=== PATIENT | male | born 1980 | race Caucasian/White ===

== ENCOUNTER 2019-07-18 07:31 | Emergency (ER) | payer SELFPAY ==
--- NOTE | 2019-07-18 08:08 | EDM.PDOC ---
ED HPI GENERAL MEDICAL PROBLEM - General Chief Complaint: Laceration Stated Complaint: CUT LEFT ARM Time Seen by Provider: 07/18/19 07:45 Source of Information: Reports: Patient, RN History Limitations: Reports: No Limitations - History of Present Illness INITIAL COMMENTS - FREE TEXT/NARRATIVE: 39 yo male here after incurring a grinding injury to his forearm just before arrival while at work. Is not certain about the timing of his last tetanus. No other injuries. 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) Left Arm Pain Score (Numeric/FACES): 3 - Related Data Allergies Allergy/AdvReac Type Severity Reaction Status Date / Time Penicillins AdvReac Other Verified 07/18/19 07:43 Home Meds: Home Meds Lisinopril 20 mg PO DAILY 07/18/19 [History] Past Medical History HEENT History: Reports: Impaired Vision Cardiovascular History: Reports: Hypertension - Past Surgical History Head Surgeries/Procedures: Reports: None Cardiovascular Surgical History: Reports: None Social & Family History - Tobacco Use Smoking Status *Q: Former Smoker Used Tobacco, but Quit: Yes Month/Year Tobacco Last Used: 2004 - Caffeine Use Caffeine Use: Reports: Coffee - Recreational Drug Use Recreational Drug Use: No ED ROS GENERAL - Review of Systems Review Of Systems: See Below Constitutional: Reports: No Symptoms Musculoskeletal: Reports: No Symptoms Skin: Reports: Wound (L forearm, grinding wheel injury) Neurological: Reports: No Symptoms Psychiatric: Reports: No Symptoms ED EXAM, SKIN/RASH Exam: See Below Exam Limited By: No Limitations General Appearance: Alert, WD/WN, No Apparent Distress Extremities: Other (wound L forearm) Neurological: Alert, Oriented, CN II-XII Intact, Normal Cognition, No Motor/ Sensory Deficits Psychiatric: Normal Affect, Normal Mood Skin: Warm, Dry, Normal Color, No Rash, Wound/Incision (L forearm, no active bleeding, CMS intact distally.) Location, Skin: Upper Extremity, Left Characteristics: Linear Associated features: Tenderness. No: Warmth, Lymphangitis, Inflammation ED SKIN PROCEDURES - Laceration/Wound Repair Left Middle Anterior Lateral Arm Appearance: Subcutaneous, Mildly Contaminated Distal NVT: Neuro & Vascular Intact, No Tendon Injury Anesthetic Type: Local Local Anesthesia - Lidocaine (Xylocaine): 1% Plain Local Anesthetic Volume: 5cc Skin Prep: Saline Saline Irrigation (cc's): 45 Closed with: Sutures Lac/Wound length In cm: 2.5 Suture Size: 5-0 # of Sutures: 3 Suture Type: Nylon, Interrupted, Mattress Drain Placement: No Sterile Dressing Applied: Nurse Tetanus Status Addressed: Yes Complications: No Course - Vital Signs Last Recorded V/S: Last Vital Signs Temp 35.7 C 07/18/19 07:51 Pulse 69 07/18/19 07:51 Resp 16 07/18/19 07:51 BP 141/84 H 07/18/19 07:51 Pulse Ox 97 07/18/19 07:51 - Orders/Labs/Meds Meds: Medications Discontinued Medications Generic Name Dose Route Start Last Admin Trade Name Zainab PRN Reason Stop Dose Admin Lidocaine HCl 5 ml 07/18/19 07:55 Xylocaine-Mpf 1% INJECT 07/18/19 07:56 ONETIME ONE Departure - Departure Time of Disposition: 08:20 Disposition: Home, Self-Care 01 Condition: Good Clinical Impression: Laceration of forearm, left Qualifiers: Encounter type: initial encounter Qualified Code(s): S51.812A - Laceration without foreign body of left forearm, initial encounter - Discharge Information *PRESCRIPTION DRUG MONITORING PROGRAM REVIEWED*: No *COPY OF PRESCRIPTION DRUG MONITORING REPORT IN PATIENT ARMOND: No Instructions: Laceration Care, Adult, [id number] Referrals: PCP,None [Primary Care Provider] - Additional Instructions: Clean wound twice daily with soap and water. Dry. Apply antibiotic ointment and a new dressing. Recheck for signs of infection. Stitches out in 9-10 days in the clinic. Use acetaminophen as needed for pain relief.
[2019-07-18] MEDS ORDERED: Bacitracin Oint 1 GM U/D Packet TOP ONE (08:10)
== END 2019-07-18 08:20 | disposition home or self-care (01) ==
LOC: JP.ED 07:31
DX: S51.812A Laceration without foreign body of left forearm, initial encounter (principal); I10 Essential (primary) hypertension; Z88.0 Allergy status to penicillin; Z79.899 Other long term (current) drug therapy; Z87.891 Personal history of nicotine dependence; W26.9XXA Contact with unspecified sharp object(s), initial encounter; Y99.0 Civilian activity done for income or pay
CPT/HCPCS: 12001; 99282; J2001

== ENCOUNTER 2021-04-09 06:57 | Day surgery (SDC) | payer MEDICAID ==
[~2021-04-09 06:57] MED LIST: Bupivacaine 0.5% 50 ML MDV ONE; Lidocaine 1% with EPINEPHrine 1:100,000 50 ML MDV ONE; Sodium Chloride 0.9% 1,000 ML IV SCH; metroNIDAZOLE/Normal Saline 500 MG in Premix Bag 1 BAG IV ONE
[2021-04-09] MEDS ORDERED: fentaNYL 250 MCG/5 ML SDV ONE ×2 (07:23→08:29)
[2021-04-09] MEDS ORDERED: Neostigmine Methylsulfate 1 MG/ML 5 ML Syringe ONE (07:24)
[2021-04-09] MEDS ORDERED: Propofol 200 MG/20 ML SDV ONE (07:24)
[2021-04-09] MEDS ORDERED: Ondansetron 4 MG/2 ML SDV ONE (07:24)
[2021-04-09] MEDS ORDERED: Succinylcholine 200 MG/10 ML MDV ONE (07:24)
[2021-04-09] MEDS ORDERED: Rocuronium 50 MG/5 ML Vial ONE (07:24)
[2021-04-09] MEDS ORDERED: Glycopyrrolate 0.2 MG/ML 5 ML MDV ONE (07:24)
[2021-04-09] MEDS ORDERED: Dexamethasone 4 MG/ML SDV ONE (07:24)
[2021-04-09] MEDS ORDERED: Sodium Chloride 0.9% 1,000 ML IV SCH (07:30)
[2021-04-09] MEDS ORDERED: metroNIDAZOLE/Normal Saline 500 MG in Premix Bag 1 BAG IV ONE (08:15)
[2021-04-09] MEDS ORDERED: Lactated Ringers 1,000 ML ONE (08:44)
[2021-04-09] MEDS ORDERED: Benzocaine/Cetylpyridinium/Menthol Lozenge MUCMEM PRN (09:07)
[2021-04-09] MEDS ORDERED: Docusate Sodium 100 MG Cap PO PRN (09:07)
[2021-04-09] MEDS ORDERED: Acetaminophen/HYDROcodone 325-5 MG Tab PO PRN (09:07)
[2021-04-09] MEDS ORDERED: Zolpidem 5 MG Tab PO PRN (09:07)
[2021-04-09] MEDS ORDERED: hydrOXYzine HCL 100 MG/2 ML SDV IM PRN (09:07)
--- NOTE | 2021-04-09 15:11 | OR ---
DATE OF PROCEDURE: 04/09/2021 SURGEON: Tee Koenig MD PROCEDURES: 1. Transversus abdominis plane block bilaterally. 2. Rectus sheath blocks bilaterally. COMPLICATIONS: None. SOCIAL INSURANCE SPECIALIST: None. RISKS: Risks, benefits, alternatives, and limitations including but not limited to infection, bleeding, and injury to abdominal structures were explained to patient who wished to proceed. PROCEDURE IN DETAIL: The patient was placed in supine position. The right transversus abdominis plane was identified first. This was injected with approximately 20% of solution. This was repeated on the left side. Bilateral rectus sheaths were also identified and injected with 20% of the solution respectively. At no time was the needle blindly advanced nor advanced past the peritoneum. The patient tolerated the procedure well. Tee Koenig MD /[id number]
--- NOTE | 2021-04-09 15:40 | OR ---
DATE OF PROCEDURE: 04/09/2021 SURGEON: Tee Koenig MD PROCEDURE: Laparoscopic cholecystectomy. PREOPERATIVE DIAGNOSES: 1. Cholelithiasis. 2. Cholecystitis. POSTOPERATIVE DIAGNOSES: 1. Cholelithiasis. 2. Cholecystitis. COMPLICATIONS: None. 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 ANESTHESIA: General. RISKS: Risks, benefits, alternatives, and limitations including but not limited to infection, bleeding, perforation of abdominal structures, cystic duct leaks, common bile duct injury, seroma, hematoma, and other risks not listed here were explained to the patient, and they wished to proceed. PROCEDURE IN DETAIL: The patient was placed in supine position. A supraumbilical curvilinear incision was made. A Veress needle was used to enter the abdomen without abnormality, and a drop test was performed without abnormality. The abdomen was subsequently insufflated. This was followed by an Optiview trocar, and two additional 5 mm and a 10 mm port were entered under direct visualization. The gallbladder was retracted cephalad. The infundibulum was retracted inferolaterally. Using blunt dissection, a "clear view" of the gallbladder was obtained with a single pulsatile structure entering the gallbladder and a single non-pulsatile structure entering the gallbladder. These were subsequently clipped and transected. Photo was taken to show the clips completely crossed the cystic duct. The remaining 1/3rd of the gallbladder was removed off the gallbladder bed using electrocautery. This was delivered through the superior port with a bag. The abdomen was re-insufflated. Minimal bleeding was controlled with electrocautery. The pressure was dropped to 7. No additional bleeding was noted. The abdomen was irrigated with 1 L of irrigation. The liquid was removed. The air was removed. The wounds were closed with 3-0 Vicryl and 4-0 Vicryl in interrupted running fashion after irrigation. The patient tolerated the procedure well. Tee Koenig MD /[id number]
== END 2021-04-09 11:50 | disposition home or self-care (01) ==
LOC: JP.SDS 06:57
PROVIDERS: ATTEND Surgery
DX: K81.1 Chronic cholecystitis (principal); I10 Essential (primary) hypertension; Z79.899 Other long term (current) drug therapy; Z88.0 Allergy status to penicillin; Z87.891 Personal history of nicotine dependence
CPT/HCPCS: 36415; 47562; 80053; 85027; J0171; J0330; J1100; J2405; J2704; J2710; J2795; J3010; J3490; J7030; J7120; 88304